=== PATIENT | female | born 1950 | race Two or more races ===

== ENCOUNTER 2017-10-20 12:45 | Emergency (ER) | payer OTHER, MEDICAID ==
[~2017-10-20] VITALS: Ht 154.9 cm; Wt 65.8 kg
[~2017-10-20 12:45] MED LIST: ALEN70TA55 PO; ASPI325T4 PO; CARV3.1240 PO; ESCI10TA53 PO; GABA800T97 PO; INSLANTI SC; LATA0.0015 LEFTEYE; LISI10TA6 PO; NOVOLOG SC; OMEP20TA44 PO; SIMV10TA84 PO; TAMS0.4C36 PO; [UNRECOGNIZED DRUG - CODE] PO
[2017-10-20 13:47] LABS: Basophils # (auto) 0.1 uL; Basophils % (auto) 1.4 % (0.0-2.0); Eosinophils # (auto) 0.2 uL; Eosinophils % (auto) 3.6 % (0.0-7.0); Hematocrit 40.2 % (36.0-46.0); Hemoglobin 13.2 g/dL (12.2-16.2); Lymphocytes # (auto) 1.5 uL; Lymphocytes % (auto) 29.3 % (10.0-50.0); Mean Corpuscular Hemoglobin 29.3 pg (28.0-32.0); Mean Corpuscular Hgb Conc. 32.8 g/dL (32.0-36.0); Mean Corpuscular Volume 89.5 fL (80.0-100.0); Monocytes # (auto) 0.4 uL; Monocytes % (auto) 8.4 % (0.0-12.0); Neutrophils # (auto) 2.9 uL; Neutrophils % (auto) 57.3 % (37.0-80.0); Nucleated Red Blood Cells % 0.2 %; Platelet Count (auto) 227 10^3/uL (140-450); Red Cell Distribution Width 14.7 % (11.8-14.3); White Blood Cell 5.1 10^3/uL (4.4-10.8)
[2017-10-20 14:00] LABS: INR 0.93 (0.9-1.15); Partial Thromboplastin Time 28.5 sec (23.78-33.04)
[2017-10-20 14:10] LABS: Alanine Aminotransferase 24 U/L (13-56); Albumin 3.4 g/dL (3.4-5.0); Alkaline Phosphatase 82 U/L (45-117); Anion Gap 12 (5-15); Aspartate Aminotransferase 19 U/L (15-37); BUN/Creatinine Ratio 17.8; Bilirubin, Total 0.3 mg/dL (0.2-1.0); Blood Urea Nitrogen 21 mg/dL (7-18); Calcium 8.5 mg/dL (8.5-10.1); Carbon Dioxide 24 mmol/L (21-32); Chloride 103 mmol/L (98-107); GFR African American 59 mL/min; GFR Non-African American 49 mL/min; Glucose 101 mg/dL (74-106); Potassium 3.9 mmol/L (3.5-5.1); Sodium 139 mmol/L (136-145)
[2017-10-20] MEDS ORDERED: FUROSEMIDE 40 MG/4 ML VIAL IV ONE (14:45)
[2017-10-20 15:52] VITALS: BP 146/66
== END 2017-10-20 15:54 | disposition home or self-care (01) ==
LOC: ER 12:45
DX: I50.9 Heart failure, unspecified (principal); E11.9 Type 2 diabetes mellitus without complications; I10 Essential (primary) hypertension; Z96.89 Presence of other specified functional implants; Z79.82 Long term (current) use of aspirin; Z79.4 Long term (current) use of insulin
CPT/HCPCS: 36415; 71045; 80053; 81002; 83880; 84484; 85025; 85610; 85730; 93005; 96374; 99285; J1940

== ENCOUNTER → 2019-06-06 | Emergency (ER) | payer OTHER, MEDICAID ==
[~2019-06-06] VITALS: Ht 162.6 cm; Wt 60.3 kg
[~2019-06-06] MED LIST changes: +ALEN1TAB32 PO; -ALEN70TA55 PO; -LATA0.0015 LEFTEYE; +LATA0.0019 LEFTEYE; +MORPHINE SULFATE 4 MG/ML SYR/VIAL IV ONE; +NITR100C44 PO; +ONDANSETRON HCL 4 MG/2 ML VIAL IV ONE; +ONDANSETRON ODT 4 MG TAB PO ONE; +OXYB5TAB61 PO
[2019-06-06 23:01] VITALS: BP 131/63
== END | disposition home or self-care (01) ==
LOC: EDUNIT# 19:34 → EDBD 19:35 → ER 19:36
DX: S83.91XA Sprain of unspecified site of right knee, initial encounter (principal); S80.01XA Contusion of right knee, initial encounter; E11.9 Type 2 diabetes mellitus without complications; E78.5 Hyperlipidemia, unspecified; I10 Essential (primary) hypertension; Z88.6 Allergy status to analgesic agent; W01.0XXA Fall on same level from slipping, tripping and stumbling without subsequent striking against object, initial encounter; Y93.89 Activity, other specified; Y92.89 Other specified places as the place of occurrence of the external cause; Y99.8 Other external cause status
CPT/HCPCS: 73562; 96374; 96375; 99285; J2270; J2405

== ENCOUNTER 2020-01-19 18:15 | Inpatient (IN) | payer OTHER, MEDICAID ==
[~2020-01-19] VITALS: Ht 165.1 cm; Wt 60.5 kg
[~2020-01-19 18:15] MED LIST changes: +LISI-648 PO; -LISI10TA6 PO; -MORPHINE SULFATE 4 MG/ML SYR/VIAL IV ONE; +NITR-87 PO; -NITR100C44 PO; -ONDANSETRON HCL 4 MG/2 ML VIAL IV ONE; -ONDANSETRON ODT 4 MG TAB PO ONE
[2020-01-19 19:21] LABS: Basophils # (auto) 0 10 ^3/uL (0-0.2); Basophils % (auto) 0.7 % (0.0-2.0); Eosinophils # (auto) 0.1 10 ^3/uL (0-0.8); Eosinophils % (auto) 1.6 % (0.0-7.0); Hematocrit 31.6 % (36.0-46.0); Hemoglobin 10.5 g/dL (12.2-16.2); Lymphocytes # (auto) 0.8 10 ^3/uL (0.4-5.4); Lymphocytes % (auto) 10.4 % (10.0-50.0); Mean Corpuscular Hgb Conc. 33.2 g/dL (32.0-36.0); Mean Corpuscular Volume 87.3 fL (80.0-100.0); Monocytes # (auto) 0.2 10 ^3/uL (0-1.3); Neutrophils # (auto) 6.3 10 ^3/uL (1.6-8.6); Neutrophils % (auto) 84.3 % (37.0-80.0); Platelet Count (auto) 323 10^3/uL (140-450); Red Blood Cells 3.61 10^6/uL (4.0-5.20); Red Cell Distribution Width 15.8 % (11.8-14.3); White Blood Cell 7.5 10^3/uL (4.4-10.8)
[2020-01-19 19:37] LABS: INR 0.99 (0.9-1.15); Partial Thromboplastin Time 26.8 sec (23.0-31.2)
[2020-01-19 19:39] LABS: Calcium 8.4 mg/dL (8.5-10.1); Magnesium 2.8 mg/dL (1.6-2.6); Potassium 3.7 mmol/L (3.5-5.1)
[2020-01-19 19:45] LABS: BUN/Creatinine Ratio 14.9; Bilirubin, Total 0.3 mg/dL (0.2-1.0); Total Protein 7.9 g/dL (6.4-8.2)
[2020-01-19 23:58] LABS: Urine Bacteria MANY /hpf (None Seen); Urine Blood 2+ /uL (Negative); Urine Specific Gravity 1.012 (1.001-1.035); Urine WBC 546 /hpf (0 - 5); Urine WBC Clumps PRESENT /hpf (None Seen)
[2020-01-20] VITALS (7 sets, daily range): BP systolic 110–162; BP diastolic 57–85
[2020-01-20 00:03] LABS: Alcohol, Urine < 3.0 mg/dL (0-10); Amphetamine Screen, Urine POSITIVE (NEGATIVE); Barbiturate Scree,Urine NEGATIVE (NEGATIVE); Benzodiazephine Screen, Urine NEGATIVE (NEGATIVE); Cannabinoid Screen, Urine NEGATIVE (NEGATIVE); Cocaine Screen, Urine NEGATIVE (NEGATIVE); Opiate Scree,Urine NEGATIVE (NEGATIVE); Phencyclidine Screen, Urine NEGATIVE (NEGATIVE)
[2020-01-20] MEDS ORDERED: cefTRIAXone 1GM/50ML D5W 50 ML IV ONE (00:15)
[2020-01-20] MEDS ORDERED: NITROGLYCERIN 0.4 MG SL TAB SL PRN (00:15)
[2020-01-20] MEDS ORDERED: SODIUM CHLORIDE 0.9% 1,000 ML IV SCH (00:15)
[2020-01-20] MEDS ORDERED: MORPHINE SULF INJ 2 MG/ML SYRINGE 1ML IV PRN (00:15)
--- NOTE | 2020-01-20 01:58 | NUR ---
pt arrival pt arrived via stretcher. pt was transferred to hospital bed. pt is on room air. pt denies pain at this time.
[2020-01-20] MEDS ORDERED: ONDANSETRON HCL 4 MG/2 ML VIAL IV PRN (02:00)
[2020-01-20] MEDS ORDERED: ONDANSETRON HCL 4 MG/2 ML VIAL IV SCH (02:00)
--- NOTE | 2020-01-20 06:50 | NUR ---
Dr Jackson, New orders received: 10mg Hydralazine IV Q6 PRN for SBP >160. Diet order consistent carb. Orders read back and verified. This RN will carry out orders.
[2020-01-20] MEDS ORDERED: hydrALAZINE HCL 20 MG/ML VL IV PRN (07:00)
--- NOTE | 2020-01-20 07:09 | NUR ---
closing note pt resting in semi fowlers with HOB at 30 degrees. no c/o pain at this time. respirations even and non labored on room air. kaba is patent, no kinks, below bladder and draining to gravity. endorsed care to day shift RN Thad.
--- NOTE | 2020-01-20 07:55 | NUR ---
PAGED AND SPOKE TO Alex SHAFER, INFORMED OF PATIENTS LEFT SIDED WEAKNESS AND FACIAL DROOPING. INFORMED OF RECENT HEAD CT THAT WAS JUST PERFORMED YESTERDAY WITH NO ACUTE INTRACRANIAL FINDINGS PER CT REPORT. RECEIVED NEW ORDERS. TORB. WILL FOLLOW THROUGH.
--- NOTE | 2020-01-20 08:10 | NUR ---
JOHN VANG FOR NEUROLOGY CONSULT. AWAITING CALL BACK.
[2020-01-20] MEDS ORDERED: ASPirin 81 mg TAB PO ONE (08:15)
[2020-01-20] MEDS ORDERED: ATORVASTATIN 20 MG TAB PO ONE (08:15)
--- NOTE | 2020-01-20 09:08 | NUR ---
CALLED AND LEFT MESSAGE WITH MINI FOR UPDATED MEDICATION LIST.
[2020-01-20 09:45] LABS: Basophils # (auto) 0 10 ^3/uL (0-0.2); Basophils % (auto) 0.5 % (0.0-2.0); Eosinophils # (auto) 0.1 10 ^3/uL (0-0.8); Eosinophils % (auto) 1.9 % (0.0-7.0); Hematocrit 30.9 % (36.0-46.0); Hemoglobin 10.3 g/dL (12.2-16.2); Lymphocytes # (auto) 0.8 10 ^3/uL (0.4-5.4); Mean Corpuscular Hemoglobin 29.2 pg (28.0-32.0); Mean Corpuscular Hgb Conc. 33.4 g/dL (32.0-36.0); Mean Corpuscular Volume 87.4 fL (80.0-100.0); Monocytes # (auto) 0.3 10 ^3/uL (0-1.3); Monocytes % (auto) 3.4 % (0.0-12.0); Neutrophils # (auto) 6.5 10 ^3/uL (1.6-8.6); Neutrophils % (auto) 84.2 % (37.0-80.0); Platelet Count (auto) 316 10^3/uL (140-450); Red Blood Cells 3.53 10^6/uL (4.0-5.20); White Blood Cell 7.7 10^3/uL (4.4-10.8)
[2020-01-20 10:02] LABS: Albumin 2.8 g/dL (3.4-5.0); Calcium 8.5 mg/dL (8.5-10.1); Cholesterol 181 mg/dL (< 200); Potassium 3.9 mmol/L (3.5-5.1)
[2020-01-20 10:04] LABS: HDL Cholesterol 56 mg/dL (40-59); LDL Cholesterol 107 mg/dL (< 100); Triglycerides 159 mg/dL (< 150)
[2020-01-20 10:05] LABS: BUN/Creatinine Ratio 15.4; Bilirubin, Total 0.3 mg/dL (0.2-1.0); Total Protein 7.7 g/dL (6.4-8.2)
[2020-01-20] MEDS: SODIUM BICARBONATE 50ML VIAL 50 ML in SOD CHL 0.45% 1,000 ML IV SCH ×2 (11:36→23:26)
--- NOTE | 2020-01-20 11:37 | NUR ---
CALLED AND SPOKE TO Cristopher GARCIA REGARDING PATIENTS RENAL US. INFORMED OF IMPRESSIONS ON REPORT. INFORMED OF PATIENTS URINE OUTPUT OF 100ML/HR. RECEIVED NEW ORDER FOR UROLOGY CONSULT.
--- NOTE | 2020-01-20 11:52 | NUR ---
Cristopher CONN: Cristopher RENTERIA AT BEDSIDE. INFORMED OF PATIENTS STATUS. INFORMED OF PATIENTS RUN OF V-TACH ON 01/19/20. INFORMED OF PATIENTS RENAL ULTRASOUND RESULTS AND OF PENDING UROLOGY CONSULT. INFORMED OF IMPRESSIONS FROM CXR. RECEIVED ORDERS FOR PULMONOLOGY AND ONCOLOGY CONSULTS. INFORMED OF PATIENTS FACIAL DROOPING AND LEFT SIDED WEAKNESS AND OF RESULTS FROM CAROTID ULTRASOUND. RECIEVED NEW ORDERS FOR BRAIN MRI/ MRA WITHOUT CONTRAST. TORB. WILL FOLLOW THROUGH.
[2020-01-20 11:56] LABS: Protein, Urine 106.7 mg/dL (0.0-11.9)
--- NOTE | 2020-01-20 12:37 | NUR ---
JOHN RENTERIA REGARDING BRAIN MRI NOT BEING ABLE TO BE DONE PATIENT HAS AICD.
--- NOTE | 2020-01-20 13:00 | NUR ---
SPOKE TO La SAEED REGARDING UROLOGY CONSULT. PER DARLIN OK TO IRRIGATE LOPEZ CATHETER NEED. WILL FOLLOW UP TOMORROW.
[2020-01-20] MEDS: HEPARIN SODIUM (PORCINE) 5000 UNITS/ML 1ML VIAL SC SCH ×2 (13:39→22:28)
--- NOTE | 2020-01-20 16:48 | NUR ---
ATTEMPTING TO CALL REPORT TO THOMAS. AWAITING CALL BACK.
--- NOTE | 2020-01-20 17:05 | NUR ---
ATTEMPTED TO CALL REPORT TO LIA GUZMAN AGAIN. PER CHARGE SEND PATIENT AND HAVE THOMAS RN CALL FOR REPORT.
--- NOTE | 2020-01-20 17:20 | NUR ---
PATIENT TRANSFERRED TO ROOM 212B VIA BED. NO S/SOF DISTRESS NOTED AT THIS TIME. CALLED TELE OFFICE TO INFORM OF PATIENT TRANSFER.
--- NOTE | 2020-01-20 17:25 | NUR ---
Patient transferred to unit in stable condition.
--- NOTE | 2020-01-20 18:10 | NUR ---
Patient resting quietly in bed with no distress noted; denies any pain at this time. Patient stable since transfer to unit.
--- NOTE | 2020-01-20 20:02 | NUR ---
Dr. Bloom is listed for neurology consult? will f/u for clarification, do they want nephrology consult or neurology consult?
[2020-01-20] MEDS ORDERED: DEXTROSE (50%) 50ML SYRG IV PRN (22:15)
[2020-01-20] MEDS ORDERED: LORazepam 2MG/ML-1ML VIAL IV PRN (22:15)
[2020-01-20] MEDS: cefTRIAXone 1GM/50ML D5W 50 ML IV SCH (22:27)
[2020-01-20] MEDS: ASPirin-EC 325mg tab PO SCH (22:37)
[2020-01-20] MEDS: ATORVASTATIN 20 MG TAB PO SCH (22:37)
[2020-01-21 05:00] VITALS: BP 140/84
[2020-01-21] MEDS ORDERED: GABAPENTIN 400 MG CAP PO SCH (06:00)
[2020-01-21] MEDS: HEPARIN SODIUM (PORCINE) 5000 UNITS/ML 1ML VIAL SC SCH ×2 (06:20→21:47)
[2020-01-21] MEDS: ACCU-CHEK COMFORT CURVE STRIP VI SCH ×4 (06:37→22:24)
[2020-01-21] MEDS: InsuLIN REG 1unit/0.01ml Soln (100units/ml) SC SCH ×4 (06:37→22:26)
[2020-01-21 07:09] LABS: Basophils # (auto) 0.1 10 ^3/uL (0-0.2); Eosinophils # (auto) 0.2 10 ^3/uL (0-0.8); Eosinophils % (auto) 4.3 % (0.0-7.0); Hematocrit 27.7 % (36.0-46.0); Hemoglobin 9.4 g/dL (12.2-16.2); Lymphocytes # (auto) 1.6 10 ^3/uL (0.4-5.4); Mean Corpuscular Hemoglobin 29.5 pg (28.0-32.0); Mean Corpuscular Volume 86.8 fL (80.0-100.0); Monocytes # (auto) 0.4 10 ^3/uL (0-1.3); Monocytes % (auto) 6.9 % (0.0-12.0); Neutrophils # (auto) 3.5 10 ^3/uL (1.6-8.6); Neutrophils % (auto) 60.8 % (37.0-80.0); Nucleated Red Blood Cells % 0.2 %; Platelet Count (auto) 278 10^3/uL (140-450); Red Blood Cells 3.19 10^6/uL (4.0-5.20); Red Cell Distribution Width 15.5 % (11.8-14.3); White Blood Cell 5.7 10^3/uL (4.4-10.8)
[2020-01-21] MEDS: SODIUM BICARBONATE 50ML VIAL 50 ML in SOD CHL 0.45% 1,000 ML IV SCH ×2 (07:15→15:36)
[2020-01-21 07:24] LABS: Albumin 2.5 g/dL (3.4-5.0); Potassium 3.6 mmol/L (3.5-5.1)
--- NOTE | 2020-01-21 07:25 | NUR ---
Patient asleep with no distress noted at this time. Patient stable.
[2020-01-21 07:35] LABS: Bilirubin, Total 0.2 mg/dL (0.2-1.0); Total Protein 6.7 g/dL (6.4-8.2)
[2020-01-21 08:00] VITALS: BP 140/80
[2020-01-21 09:00] VITALS: BP 140/80
[2020-01-21] MEDS ORDERED: ASPirin-EC 325mg tab PO SCH (10:00)
[2020-01-21] MEDS: ASPirin-EC 325mg tab PO SCH (10:27)
[2020-01-21] MEDS: OXYBUTYNIN CHL 5 MG TAB PO SCH ×2 (10:27→21:46)
[2020-01-21] MEDS: PANTOPRAZOLE 40 MG TAB PO SCH (10:28)
[2020-01-21] MEDS: CITALOPRAM HYDROBR 20 MG TAB PO SCH (10:28)
--- NOTE | 2020-01-21 10:28 | NUR ---
Scheduled medications given per order. Patient resting comfortably in bed; denies any pain at this time. Patient stable with lion Gonzalez at bedside.
--- NOTE | 2020-01-21 12:40 | NUR ---
Checked blood sugar: 105 mg/dl - no coverage required. Patient eating lunch at this time. Denies any pain. Patient stable.
[2020-01-21 13:00] VITALS: BP 154/79
--- NOTE | 2020-01-21 14:41 | NUR ---
Pt is an alert and oriented female that is able to make her needs known and engage in conversation. Pt states she resides in her own home and has a new caregiver, Ambar, that she says will be helping her for 8 hours a day. Inquired if pt could ambulate, go to the bathroom on her own, etc. when the caregiver is not there. Pt stated she did not know. Requested the phone number of caregiver and pt stated she did not have it. Discussed SNF vs. HH for discharge planning and pt stated she would consider it. Pt stated I could contact facilities and followup with her. Contacted [facility], [facility], [facility], and [facility] and pt accepted at [facility]. Pt will need a PT evaluation and authorization from [facility]. Will refer case to covering and CM for followup. Addendum: 01/21/20 at 1515 by JESSY LUGO Amended: Links added.
[2020-01-21] MEDS ORDERED: GABAPENTIN 300 MG CAP PO SCH (14:45)
--- NOTE | 2020-01-21 14:55 | NUR ---
Patient resting comfortably in bed with eyes closed. No distress noted at this time. Patient stable.
--- NOTE | 2020-01-21 15:40 | NUR ---
Started new IVF bag. Patient resting quietly in bed; stable.
--- NOTE | 2020-01-21 15:58 | NUR ---
1550 01/21/20 - Contacted physical therapy regarding consult for PT edwardoal, spoke with Ezio who confirmed receiving consult. Pending completion of evaluation.
[2020-01-21 17:00] VITALS: BP 140/97
--- NOTE | 2020-01-21 17:40 | NUR ---
Checked blood sugar: 112 mg/dl - no coverage required. Patient stable at this time.
--- NOTE | 2020-01-21 19:30 | NUR ---
Opening Shift Note Assumed care of patient, sleeping soundly with no s/sx of pain. RN will continue to monitor for changes Q1hr and PRN. Pt's call light is next to her R side at elbow. Bed in low position with HOB in semi-Herrera's.
[2020-01-21] MEDS: cefTRIAXone 1GM/50ML D5W 50 ML IV SCH (21:46)
[2020-01-21] MEDS: ATORVASTATIN 20 MG TAB PO SCH (21:47)
[2020-01-21] MEDS: GABAPENTIN 300 MG CAP PO SCH (21:47)
[2020-01-21 22:00] VITALS: BP 152/79
[2020-01-21] MEDS ORDERED: PATIENTS OWN MEDICATION (Simvastatin 10 MG) PO SCH (22:00)
--- NOTE | 2020-01-21 22:00 | NUR ---
Pt asking for snack; turkey/cheese sandwich provided as well as one cranberry juice. RN explained to pt that she will not be able to have drink or food after MN as prep for procedure tomorrow. Pt VU and agreement with plan. Pt grateful for food provided.
--- NOTE | 2020-01-21 23:36 | NUR ---
Dr. Aponte here at nurses' station speaking with RN about pt's imaging of lungs/nodules and pt's current status.
[2020-01-22] MEDS ORDERED: SODIUM BICARBONATE 8.4 % INJ 50ML VIAL IV ONE (03:52)
[2020-01-22] MEDS: SODIUM BICARBONATE 50ML VIAL 50 ML in SOD CHL 0.45% 1,000 ML IV SCH ×2 (04:11→16:37)
--- NOTE | 2020-01-22 05:48 | NUR ---
Pt requested assist to go to [facility] for bm; already passing liquid brown bm. Complete linen change and partial bed bath with le-care done by REPORTING CONSULTANT with RN assisting. Pt luis activity well.
[2020-01-22] MEDS: HEPARIN SODIUM (PORCINE) 5000 UNITS/ML 1ML VIAL SC SCH ×2 (05:54→22:00)
[2020-01-22 06:00] VITALS: BP 153/79
[2020-01-22] MEDS: InsuLIN REG 1unit/0.01ml Soln (100units/ml) SC SCH ×4 (06:02→22:00)
[2020-01-22] MEDS: ACCU-CHEK COMFORT CURVE STRIP VI SCH ×4 (06:02→22:22)
[2020-01-22 06:13] LABS: Albumin 2.2 g/dL (3.4-5.0); Calcium 7.7 mg/dL (8.5-10.1); Potassium 3.6 mmol/L (3.5-5.1)
[2020-01-22 06:16] LABS: BUN/Creatinine Ratio 15.8; Bilirubin, Total 0.2 mg/dL (0.2-1.0); Total Protein 6.6 g/dL (6.4-8.2)
--- NOTE | 2020-01-22 07:15 | NUR ---
Patient asleep at this time with no distress noted. Patient stable.
[2020-01-22 08:30] VITALS: BP 137/64
[2020-01-22 09:00] VITALS: BP 137/64
--- NOTE | 2020-01-22 09:13 | NUR ---
Patient resting comfortably in bed with eyes closed; Dr. Calderon at bedside. Patient stable at this time.
--- NOTE | 2020-01-22 09:45 | NUR ---
Patient resting comfortably in bed with Dr. Delgado at bedside. Patient stable.
[2020-01-22] MEDS ORDERED: ERGOCALCIFEROL 50,000 UNIT(1.25MG) CAP PO SCH (10:00)
[2020-01-22] MEDS: OXYBUTYNIN CHL 5 MG TAB PO SCH ×2 (10:00→22:22)
[2020-01-22] MEDS: CITALOPRAM HYDROBR 20 MG TAB PO SCH (10:00)
[2020-01-22] MEDS: PANTOPRAZOLE 40 MG TAB PO SCH (10:00)
[2020-01-22] MEDS: ASPirin-EC 325mg tab PO SCH (10:00)
--- NOTE | 2020-01-22 10:14 | NUR ---
Patient stable at this time; resting comfortably in bed.
--- NOTE | 2020-01-22 11:29 | NUR ---
Checked blood sugar: 111 mg/dl - no coverage required. Patient resting quietly in bed at this time. Patient stable.
[2020-01-22] MEDS ORDERED: LIDOCAINE 2%HCL (LOCAL ANESTH.) INJ 20ML MDV ONE (12:02)
--- NOTE | 2020-01-22 12:20 | NUR ---
Patient taken in stable condition to Drain Layer for procedure.
--- NOTE | 2020-01-22 12:24 | NUR ---
Nutrition Assessment Note: Please see attached link for complete assessment Est energy needs BW 58 [id number] kcal (25-30 kcal BW), Est protein needs: 46-58 g (0.8-1.0 g/kg BW r/t elev RFT severe hypoalb). Will reassess prn Addendum: 01/22/20 at [address] Amended: Links added.
[2020-01-22 13:00] VITALS: BP 144/81
[2020-01-22] MEDS ORDERED: fentaNYL CITRATE 100 MCG/2 ML VL ONE (13:23)
[2020-01-22] MEDS ORDERED: MIDAZOLAM HCL 1MG/1ML-2 ML VIAL ONE (13:23)
--- NOTE | 2020-01-22 14:37 | NUR ---
Patient brought to recovery via bed, report received from LIA Blanton. Patient is AO x 4, NAD noted and patient denies pain. Left nephrostomy tube in place and is currently draining pink-tinged fluid, dressing to left flank is CDI. Right nephrostomy tube in place and is currently draining serosanguineous fluid, dressing to right flank is CDI. Patient educated on post-procedure instructions, verbalized understanding.
--- NOTE | 2020-01-22 14:52 | NUR ---
Patient is resting in bed with eyes closed, no s/s of distress. Breaths are even and unlabored. Bilateral nephrostomy tube sites remain unchanged.
--- NOTE | 2020-01-22 15:13 | NUR ---
Report given to primary RN, Gege.
--- NOTE | 2020-01-22 15:20 | NUR ---
Patient taken to telemetry unit via bed by this RN and LIA Salguero. traffic monitor specialist in place. NAD noted upon departure. Primary RNGege present at bedside to witness bilateral nephrotomy sites, unchanged form previous state. VS WNL of baseline. Care endorsed to LIA De Guzman.
--- NOTE | 2020-01-22 15:25 | NUR ---
Patient returned to unit in stable condition with bilateral nephrostomy tubes with bright, red drainage.
--- NOTE | 2020-01-22 15:30 | NUR ---
Patient taken to [facility] for bone scan.
--- NOTE | 2020-01-22 16:26 | NUR ---
D/C planning Physical therapy evaluation is still pending. Will follow up in the morning.
--- NOTE | 2020-01-22 16:39 | NUR ---
Patient medicated for 10/10 pain at nephrostomy sites and chest pain. Checked blood sugar: 147 mg/dl - will cover per sliding scale. Patient stable at this time.
[2020-01-22 16:51] VITALS: BP 145/69
--- NOTE | 2020-01-22 18:50 | NUR ---
Patient resting quietly in bed with eyes closed. Emptied 150mls from right nephrostomy tube, 325mls from left nephrostomy tube, and 225mls from Kerr bag. Patient stable throughout shift.
--- NOTE | 2020-01-22 19:58 | NUR ---
Called natural resources extension educator for Dr. Gabby Ruby; spoke with Dr. Jackson asking for pain med for pt. Order received for Morphine 2mg/ml q4h prn mod to severe pain. Order entered into EMR.
[2020-01-22 22:00] VITALS: BP 129/62
[2020-01-22] MEDS: cefTRIAXone 1GM/50ML D5W 50 ML IV SCH (22:22)
[2020-01-22] MEDS: GABAPENTIN 300 MG CAP PO SCH (22:22)
[2020-01-22] MEDS: ATORVASTATIN 20 MG TAB PO SCH (22:22)
[2020-01-22] MEDS: MORPHINE SULF INJ 2 MG/ML SYRINGE 1ML IV PRN (22:42)
[2020-01-23] MEDS: SODIUM BICARBONATE 50ML VIAL 50 ML in SOD CHL 0.45% 1,000 ML IV SCH (00:43)
[2020-01-23 04:55] VITALS: BP 102/56
[2020-01-23] MEDS: ACCU-CHEK COMFORT CURVE STRIP VI SCH ×3 (06:00→17:00)
[2020-01-23] MEDS: InsuLIN REG 1unit/0.01ml Soln (100units/ml) SC SCH ×4 (06:00→22:00)
[2020-01-23] MEDS: HEPARIN SODIUM (PORCINE) 5000 UNITS/ML 1ML VIAL SC SCH ×3 (06:13→22:00)
--- NOTE | 2020-01-23 06:52 | NUR ---
Total urine output for this 12 hr. shift was: L nephrostomy =275ml. R nephrostomy = 200ml. F/C = 50ml.
--- NOTE | 2020-01-23 06:54 | NUR ---
Dressings to sacrum and nephrostomy sites are CD&I.
[2020-01-23 06:58] LABS: Albumin 2.4 g/dL (3.4-5.0); Calcium 8.2 mg/dL (8.5-10.1)
[2020-01-23 07:02] LABS: BUN/Creatinine Ratio 13.6; Bilirubin, Total 0.3 mg/dL (0.2-1.0); Total Protein 6.7 g/dL (6.4-8.2)
--- NOTE | 2020-01-23 07:30 | NUR ---
Medication withheld Heparin withheld due to scheduled biopsy for the morning. Doctor answering service called. Covering physician suggested to wait to speak to Dr. Mercado in the morning. Endorsed to night warehouse manager.
--- NOTE | 2020-01-23 07:50 | NUR ---
Opening Shift Note Assumed care of patient, awake and alert to name. A/O X 3. Patient cannot remember where she lives. No S/S of distress/SOB or pain. Patient presents with right sided weakness and shaking. Left side is also weak but no noticeable uncontrolled movements observed. Kerr in place with minimal red urine draining. Right and left nephrostomy tubes in place, dressings dry and clean. Right side 110ml, left side 75 ml. Instructed on POC and to call for assist PRN. Patient verbalized understanding. Bed is in lowest position and the call light is within reach of the patient. Will continue to monitor for changes Q1hr and PRN.
[2020-01-23 08:25] VITALS: BP 131/83
[2020-01-23 09:00] VITALS: BP 131/83
--- NOTE | 2020-01-23 09:30 | NUR ---
Dr. Delgado at bedside Dr. Delgado at bedside rounding on patient.
[2020-01-23] MEDS: OXYBUTYNIN CHL 5 MG TAB PO SCH (09:53)
[2020-01-23] MEDS: PANTOPRAZOLE 40 MG TAB PO SCH (09:53)
[2020-01-23] MEDS: CITALOPRAM HYDROBR 20 MG TAB PO SCH (09:53)
[2020-01-23] MEDS: ASPirin-EC 325mg tab PO SCH (09:56)
--- NOTE | 2020-01-23 10:38 | NUR ---
Radiology instructions Radiology called to inform about a scheduled lung BX for tomorrow. NPO after midnight.
--- NOTE | 2020-01-23 11:32 | NUR ---
Telemetry call Telemetry office called to inform that the patient is running the mid to high 40's. Patient is sleeping but was easily woken upon assessment. ECG leads were checked, replaced and repositioned. Will continue to monitor.
[2020-01-23 12:57] VITALS: BP 98/48
[2020-01-23] MEDS: SODIUM CHLORIDE 0.9% 1,000 ML IV SCH (14:30)
[2020-01-23 16:55] VITALS: BP 107/57
--- NOTE | 2020-01-23 19:30 | NUR ---
OPENING SHIFT NOTE Pt is resting in bed with eyes open and resp rate is even and unlabored. No s/s of any distress noted. POC discussed with pt and pt verbalizes understanding. Bed is low, wheels are locked, and call light is with in reach. Bed alarm is set for pt safety.
[2020-01-23 22:00] VITALS: BP 108/62
[2020-01-24] VITALS (10 sets, daily range): BP systolic 117–137; BP diastolic 48–67
[2020-01-24] MEDS: cefTRIAXone 1GM/50ML D5W 50 ML IV SCH ×2 (00:10→21:36)
[2020-01-24] MEDS: GABAPENTIN 300 MG CAP PO SCH ×2 (00:11→21:37)
[2020-01-24] MEDS: ATORVASTATIN 20 MG TAB PO SCH ×2 (00:11→21:37)
[2020-01-24] MEDS: OXYBUTYNIN CHL 5 MG TAB PO SCH ×3 (00:11→21:37)
[2020-01-24] MEDS: ACCU-CHEK COMFORT CURVE STRIP VI SCH ×5 (00:11→21:38)
--- NOTE | 2020-01-24 05:00 | NUR ---
NEPHRO TUBE DRAINAGE FOR FACILITY MANAGER RIGHT SIDE= 400MLS SHEPPARD RED DRAINAGE WITH LARGE CLOTS. LEFT SIDE= 150MLS PINK DRAINAGE.
[2020-01-24] MEDS: SODIUM CHLORIDE 0.9% 1,000 ML IV SCH ×3 (05:31→21:36)
[2020-01-24] MEDS: HEPARIN SODIUM (PORCINE) 5000 UNITS/ML 1ML VIAL SC SCH ×3 (05:35→21:38)
[2020-01-24] MEDS: InsuLIN REG 1unit/0.01ml Soln (100units/ml) SC SCH ×4 (06:33→21:34)
[2020-01-24 06:54] LABS: Basophils # (auto) 0 10 ^3/uL (0-0.2); Eosinophils # (auto) 0.2 10 ^3/uL (0-0.8); Hemoglobin 8.3 g/dL (12.2-16.2); Lymphocytes # (auto) 0.8 10 ^3/uL (0.4-5.4); Platelet Count (auto) 213 10^3/uL (140-450)
[2020-01-24 06:57] LABS: Basophils % (auto) 0.5 % (0.0-2.0); Eosinophils % (auto) 3.3 % (0.0-7.0); Hematocrit 24.5 % (36.0-46.0); Lymphocytes % (auto) 11.3 % (10.0-50.0); Mean Corpuscular Hemoglobin 29.8 pg (28.0-32.0); Mean Corpuscular Hgb Conc. 33.9 g/dL (32.0-36.0); Mean Corpuscular Volume 87.8 fL (80.0-100.0); Monocytes # (auto) 0.5 10 ^3/uL (0-1.3); Monocytes % (auto) 6.8 % (0.0-12.0); Neutrophils # (auto) 5.3 10 ^3/uL (1.6-8.6); Neutrophils % (auto) 78.1 % (37.0-80.0); Red Blood Cells 2.79 10^6/uL (4.0-5.20); Red Cell Distribution Width 15.6 % (11.8-14.3); White Blood Cell 6.8 10^3/uL (4.4-10.8)
[2020-01-24 07:08] LABS: Albumin 2.1 g/dL (3.4-5.0); Calcium 7.5 mg/dL (8.5-10.1); Magnesium 2.1 mg/dL (1.6-2.6); Potassium 3.8 mmol/L (3.5-5.1)
[2020-01-24 07:11] LABS: BUN/Creatinine Ratio 14.5; Bilirubin, Total 0.2 mg/dL (0.2-1.0)
--- NOTE | 2020-01-24 07:15 | NUR ---
Opening Shift Note Assumed care of patient. Sleeping comfortably when entering the room. Awaken for am assessment. No S/S of distress/SOB or pain. Nephrostomy tubes and kaba in tact and draining well. Instructed on POC including scheduled lung biopsy. Patient verbalized understanding. Encouraged to call PRN. Bed is in lowest position and the call light is within reach of the patient. Will continue to monitor for changes Q1hr and PRN.
--- NOTE | 2020-01-24 09:30 | NUR ---
Dr. Delgado at bedside Dr. Delgado at bedside assessing the patient. Doctor updated on the heparin order and suggested to not give today but resume tomorrow. Made aware of it withheld yesterday for today's procedure.
[2020-01-24] MEDS ORDERED: MIDAZOLAM HCL 1MG/1ML-2 ML VIAL IV ONE (10:00)
[2020-01-24] MEDS ORDERED: fentaNYL CITRATE 100 MCG/2 ML VL IV ONE (10:00)
[2020-01-24] MEDS: ASPirin-EC 325mg tab PO SCH (10:00)
[2020-01-24] MEDS: PANTOPRAZOLE 40 MG TAB PO SCH (10:10)
[2020-01-24] MEDS: CITALOPRAM HYDROBR 20 MG TAB PO SCH (10:10)
[2020-01-24 10:55] LABS: INR 0.99 (0.9-1.15); Partial Thromboplastin Time 29.9 sec (23.0-31.2)
--- NOTE | 2020-01-24 14:50 | NUR ---
IV removal IV DC'd with sterile technique, catheter fully intact. Pressure dressing applied to site. Patient tolerated procedure well. IV access obtained, via clean sterile technique by inserting 20 gauge catheter in the right forearm after 1 attempt. IV secured properly. No trauma to site. Patient tolerated well.
--- NOTE | 2020-01-24 14:59 | NUR ---
Patient to radiology Patient transferred off the unit by radiology.
--- NOTE | 2020-01-24 15:20 | NUR ---
D/C Planning There is no MD order for SNF. [facility] is requesting order from MD with a new packet before authorizing SNF.
[2020-01-24] MEDS ORDERED: LIDOCAINE 2%HCL (LOCAL ANESTH.) INJ 20ML MDV ONE (15:32)
--- NOTE | 2020-01-24 16:30 | NUR ---
Patient returned to room Patient returned to room and resting comfortably. No S/S of pain at this time.
--- NOTE | 2020-01-24 16:30 | NUR ---
LUNG BIOPSY PATIENT HAD CT GUIDED RIGHT LUNG BIOPSY IN RADIOLOGY DEPT UNDER LOCAL ANESTHESIA. SEE FLOW SHEET FOR VS. PATIENT TOLERATED PROCEDURE WELL. BANDAID APPLIED TO RUQ ABD AT TERMINATION OF PROCEDURE WITHOUT BLEEDING/HEMATOMA NOTED AT SITE. CXR ORDERED PER PROTOCOL. CONDITION APPEARS STABLE FOR RETURN TO PATIENT ROOM. 400ML MEDIUM RED LIQUID EMPTIED OUT OF LEFT NEPHROSTOMY TUBE. REPORT GIVEN TO SANTOSH FITZGERALD.
--- NOTE | 2020-01-24 16:45 | NUR ---
Medication withheld [address] Delgado made aware. 1600 sugars checked 98. No coverage needed.
--- NOTE | 2020-01-24 21:00 | NUR ---
Pt noted to be more alert and active this evening. Pt is able to move around in the bed and turn herself now. Pt is also stating that she has increased appetite and is noted to be able to feed herself. Pt encouraged to keep progressing with her ADL's and stand by assistance prn. Bed is low, wheels are locked, and call light is with in reach.
--- NOTE | 2020-01-25 01:00 | NUR ---
Pt called for assistance stating that she feels wet. Upon assessment pt is noted to have a disconnected nephro tube and tube reconnected at this time. All linens and gown also changed at this time. Checked right nephro tube and is noted to be connected and draining clear light pink urine w/ no clots. Kerr cath is also draining clear light pink urine. Will continue to monitor.
[2020-01-25 05:00] VITALS: BP 150/69
--- NOTE | 2020-01-25 05:00 | NUR ---
NEPHROSTOMY TUBE DRAINAGE FOR TAX ANALYST RIGHT= 400ML CLEAR LIGHT PINK LEFT= 200ML CLEAR LIGHT PINK
[2020-01-25 06:10] LABS: Albumin 2.1 g/dL (3.4-5.0); Calcium 7.6 mg/dL (8.5-10.1); Potassium 3.9 mmol/L (3.5-5.1)
[2020-01-25 06:12] LABS: BUN/Creatinine Ratio 14.1
[2020-01-25 06:14] LABS: Bilirubin, Total 0.2 mg/dL (0.2-1.0); Total Protein 6.3 g/dL (6.4-8.2)
[2020-01-25] MEDS: InsuLIN REG 1unit/0.01ml Soln (100units/ml) SC SCH ×4 (06:17→22:00)
[2020-01-25] MEDS: SODIUM CHLORIDE 0.9% 1,000 ML IV SCH (06:18)
[2020-01-25] MEDS: ACCU-CHEK COMFORT CURVE STRIP VI SCH ×4 (06:19→23:50)
[2020-01-25] MEDS: HEPARIN SODIUM (PORCINE) 5000 UNITS/ML 1ML VIAL SC SCH ×3 (06:20→23:50)
[2020-01-25 09:00] VITALS: BP 152/73
[2020-01-25] MEDS: OXYBUTYNIN CHL 5 MG TAB PO SCH ×2 (10:34→23:48)
[2020-01-25] MEDS: CITALOPRAM HYDROBR 20 MG TAB PO SCH (10:34)
[2020-01-25] MEDS: PANTOPRAZOLE 40 MG TAB PO SCH (10:34)
[2020-01-25] MEDS: ASPirin-EC 81 mg tab PO SCH (10:35)
[2020-01-25] MEDS: MORPHINE SULF INJ 2 MG/ML SYRINGE 1ML IV PRN (10:36)
--- NOTE | 2020-01-25 11:41 | NUR ---
Nutrition Followup Note Wt 61.4kg Pt was alert and oriented at time of rounds. Pt was about to work with PT. Per pt appetite is good and denies any GI issues or problems with the foods. pt appetite is good aeb pt with 82% avg po intake per RN note. Est energy needs BW 58 [id number] kcal (25-30 kcal BW), Est protein needs: 46-58 g (0.8-1.0 g/kg BW r/t elev RFT severe hypoalb). Will reassess prn Labs: Alb 2.1L, BUN 40H, Creat 2.83H, Ca 7.6L BM: pt with 1 BM 01/22 per Rn note Skin: Bs 14 mod risk, full details in manager long term care note PES: Altered nutrition related lab values rt current chronic medical condition aeb elev RFT severe hypoalb hypocalcemia Comments: 1) consider renal specific 50 gm protein 2gm na along with current diet if RFT continue to be elev 2) refer to CDE on DC 3) consider prostat 1 packet bid as RFT improve 4) continue current plan of care Expected Outcomes/Goals: pt will have improved labs F/u mod 3-5 days
[2020-01-25 13:00] VITALS: BP 145/72
--- NOTE | 2020-01-25 15:23 | NUR ---
Spoke to Dr. Delgado Informed Dr. Delgado regarding hematuria and pink tinged urine in kaba and nephrostomy tubes, he checked the output bedside. Orders to continue with heparin SC and discontinue IV fluid, orders received, read back and verified. Will continue to monitor.
[2020-01-25 17:19] VITALS: BP 119/61
--- NOTE | 2020-01-25 17:35 | NUR ---
Output of Nephrostomy Tubes Left tube - 500 ml, R tube - 300ml
[2020-01-25 22:37] VITALS: BP 141/78
[2020-01-25] MEDS: cefTRIAXone 1GM/50ML D5W 50 ML IV SCH (23:47)
[2020-01-25] MEDS: GABAPENTIN 300 MG CAP PO SCH (23:48)
[2020-01-25] MEDS: ATORVASTATIN 20 MG TAB PO SCH (23:48)
--- NOTE | 2020-01-26 05:00 | NUR ---
NEPHROSTOMY TUBE DRAINAGE FOR FINANCIAL SALES MANAGER RIGHT= 900 CLEAR PINK LEFT= 400 CLEAR PINK
[2020-01-26 05:27] VITALS: BP 119/57
[2020-01-26] MEDS: InsuLIN REG 1unit/0.01ml Soln (100units/ml) SC SCH ×4 (06:32→22:00)
[2020-01-26 06:33] LABS: Albumin 2.1 g/dL (3.4-5.0); BUN/Creatinine Ratio 15.4; Bilirubin, Total 0.2 mg/dL (0.2-1.0); Calcium 7.7 mg/dL (8.5-10.1); Total Protein 5.8 g/dL (6.4-8.2)
[2020-01-26] MEDS: ACCU-CHEK COMFORT CURVE STRIP VI SCH ×4 (06:33→22:00)
[2020-01-26] MEDS: HEPARIN SODIUM (PORCINE) 5000 UNITS/ML 1ML VIAL SC SCH ×3 (06:34→22:26)
[2020-01-26 06:55] LABS: Potassium 4.5 mmol/L (3.5-5.1)
--- NOTE | 2020-01-26 08:05 | NUR ---
Dr. Delgado at bedside Asked this RN to page Urology to get clarification on home care, patient to keep kaab? and nepho tubes? upon discharge. director professional services needed for patient home care management. Will follow up once urology has made contact regarding management of nephro care.
--- NOTE | 2020-01-26 08:20 | NUR ---
Paged clinical consultant urology regarding questions about discharge needs.
[2020-01-26 08:42] VITALS: BP 120/66
[2020-01-26] MEDS: CITALOPRAM HYDROBR 20 MG TAB PO SCH (09:11)
[2020-01-26] MEDS: ASPirin-EC 81 mg tab PO SCH (09:11)
[2020-01-26] MEDS: PANTOPRAZOLE 40 MG TAB PO SCH (09:11)
[2020-01-26] MEDS: OXYBUTYNIN CHL 5 MG TAB PO SCH ×2 (09:11→22:27)
--- NOTE | 2020-01-26 09:18 | NUR ---
Patient preference to go home Patient states "I have a caregiver, Yvette, she can help me." She does not want to go to a rehab. Addendum: 01/26/20 at 0937 by Adore Mcfarland RN Caregiver phone number provided by patient: Yvette [phone]
[2020-01-26 13:00] VITALS: BP 134/73
[2020-01-26 16:26] VITALS: BP 125/72
[2020-01-26 18:15] VITALS: BP 129/75
--- NOTE | 2020-01-26 18:55 | NUR ---
Spoke to Kyleigh Crenshaw, Urology Ok to DC patient home with nephrostomy tubes and kaba catheter in place. Patient needs to follow up with Dr. Tineo in 1-2 weeks.
[2020-01-26] MEDS ORDERED: ATORVASTATIN 20 MG TAB PO SCH (22:00)
[2020-01-26] MEDS: GABAPENTIN 300 MG CAP PO SCH (22:26)
[2020-01-26] MEDS: cefTRIAXone 1GM/50ML D5W 50 ML IV SCH (22:27)
[2020-01-26 22:45] VITALS: BP 137/76
[2020-01-27 05:10] VITALS: BP 124/61
[2020-01-27] MEDS: HEPARIN SODIUM (PORCINE) 5000 UNITS/ML 1ML VIAL SC SCH ×2 (06:28→14:00)
[2020-01-27 06:45] LABS: Basophils # (auto) 0 10 ^3/uL (0-0.2); Basophils % (auto) 0.7 % (0.0-2.0); Eosinophils # (auto) 0.2 10 ^3/uL (0-0.8); Eosinophils % (auto) 3.7 % (0.0-7.0); Hematocrit 25.7 % (36.0-46.0); Hemoglobin 8.5 g/dL (12.2-16.2); Lymphocytes # (auto) 1.3 10 ^3/uL (0.4-5.4); Lymphocytes % (auto) 20.7 % (10.0-50.0); Mean Corpuscular Hemoglobin 29.1 pg (28.0-32.0); Mean Corpuscular Hgb Conc. 33.1 g/dL (32.0-36.0); Monocytes # (auto) 0.4 10 ^3/uL (0-1.3); Monocytes % (auto) 5.8 % (0.0-12.0); Neutrophils # (auto) 4.4 10 ^3/uL (1.6-8.6); Neutrophils % (auto) 69.1 % (37.0-80.0); Platelet Count (auto) 239 10^3/uL (140-450); Red Blood Cells 2.92 10^6/uL (4.0-5.20); Red Cell Distribution Width 15.5 % (11.8-14.3); White Blood Cell 6.4 10^3/uL (4.4-10.8)
[2020-01-27] MEDS: InsuLIN REG 1unit/0.01ml Soln (100units/ml) SC SCH ×3 (07:00→17:00)
[2020-01-27] MEDS: ACCU-CHEK COMFORT CURVE STRIP VI SCH ×2 (07:00→11:30)
[2020-01-27 07:04] LABS: Albumin 2.2 g/dL (3.4-5.0); BUN/Creatinine Ratio 14.9; Magnesium 1.8 mg/dL (1.6-2.6); Potassium 3.9 mmol/L (3.5-5.1)
[2020-01-27 07:07] LABS: Bilirubin, Total 0.2 mg/dL (0.2-1.0); Total Protein 6.4 g/dL (6.4-8.2)
[2020-01-27 08:26] VITALS: BP 146/72
[2020-01-27 12:05] VITALS: BP 125/70
[2020-01-27] MEDS: ASPirin-EC 81 mg tab PO SCH (12:31)
[2020-01-27] MEDS: OXYBUTYNIN CHL 5 MG TAB PO SCH (12:31)
[2020-01-27] MEDS: CITALOPRAM HYDROBR 20 MG TAB PO SCH (12:31)
[2020-01-27] MEDS: PANTOPRAZOLE 40 MG TAB PO SCH (12:32)
--- NOTE | 2020-01-27 15:32 | NUR ---
Per provider orders pt will be going home with HH for safety and kaba/nephrostomy care. Contacted [employer], contracted vendor for [facility], and faxed clinical information. Faxed clinical information to [facility] for authorization and per Mellissa auth is [id number]. Pt accepted onto service and will be seen by HH agency 24 hours after discharge. Per pt her caregiver , Yvette, will be providing transportation home. No further SS concerns or needs.
[2020-01-27 15:59] VITALS: BP 125/70
[2020-01-27 16:47] VITALS: BP 133/66
--- NOTE | 2020-01-27 19:09 | NUR ---
DISCHARGE NOTE PATIENT ALERT AND ORIENTED X4 ALL DISCHARGE INFORMATION GIVEN ALL QUESTIONS AND CONCERNS ADDRESSED AND ANSWERED PATIENT VERBALIZED UNDERSTANDING. IV REMOVED CATHETER INTACT PRESSURE DRESSING APPLIED PATIENT TOLERATED WELL TELE BOX REMOVED CLEANED AND SENT TO ICU GAG WRITER NOTIFIED. LOEPZ LEG BAG GIVEN PATIENT EDUCATED USE. PATIENT EDUCATED ON HOW TO DRAIN NEPHROSTOMY TUBES. LAST OUTPUT VIA NEPHROSTOMY TUBE RIGHT SIDE 300ML LEFT SIDE 250ML. PATIENT ASSISTED TO TAXI VOUCHER VAN PATIENT DENIES ALL PAIN SOB AND DISTRESS
== END 2020-01-27 19:06 | disposition home health service (06) | DRG 64 ==
LOC: EDBD 18:15 → ER 18:26 → TELE 18:27 → TELE-EAST 01-20 02:04 → TELE-CENTR 01-20 17:23
PROVIDERS: ADMIT Hospitalist; ATTEND Hospitalist
PROC: 0T9B70Z Drainage of Bladder with Drainage Device, Via Natural or Artificial Opening (ICD-10-PCS; principal; 2020-01-19)
PROC: 0T9330Z Drainage of Right Kidney Pelvis with Drainage Device, Percutaneous Approach (ICD-10-PCS; 2020-01-22)
PROC: 0T9430Z Drainage of Left Kidney Pelvis with Drainage Device, Percutaneous Approach (ICD-10-PCS; 2020-01-22)
PROC: 0BBF3ZX Excision of Right Lower Lung Lobe, Percutaneous Approach, Diagnostic (ICD-10-PCS; 2020-01-24)
DX: I63.9 Cerebral infarction, unspecified (principal); N17.0 Acute kidney failure with tubular necrosis; G81.91 Hemiplegia, unspecified affecting right dominant side; E87.2 Acidosis; C78.00 Secondary malignant neoplasm of unspecified lung; G40.209 Localization-related (focal) (partial) symptomatic epilepsy and epileptic syndromes with complex partial seizures, not intractable, without status epilepticus; I42.9 Cardiomyopathy, unspecified; N13.6 Pyonephrosis; N18.4 Chronic kidney disease, stage 4 (severe); R55 Syncope and collapse; N18.9 Chronic kidney disease, unspecified; E11.8 Type 2 diabetes mellitus with unspecified complications; D64.9 Anemia, unspecified; I10 Essential (primary) hypertension; C67.9 Malignant neoplasm of bladder, unspecified; D63.8 Anemia in other chronic diseases classified elsewhere; E04.1 Nontoxic single thyroid nodule; E11.22 Type 2 diabetes mellitus with diabetic chronic kidney disease; E11.40 Type 2 diabetes mellitus with diabetic neuropathy, unspecified; E11.65 Type 2 diabetes mellitus with hyperglycemia; E55.9 Vitamin D deficiency, unspecified; E78.5 Hyperlipidemia, unspecified; E88.09 Other disorders of plasma-protein metabolism, not elsewhere classified; F15.10 Other stimulant abuse, uncomplicated; F17.200 Nicotine dependence, unspecified, uncomplicated; H53.462 Homonymous bilateral field defects, left side; I12.9 Hypertensive chronic kidney disease with stage 1 through stage 4 chronic kidney disease, or unspecified chronic kidney disease; I65.21 Occlusion and stenosis of right carotid artery; I70.8 Atherosclerosis of other arteries; J44.9 Chronic obstructive pulmonary disease, unspecified; M19.90 Unspecified osteoarthritis, unspecified site; M51.36 Other intervertebral disc degeneration, lumbar region; F32.9 Major depressive disorder, single episode, unspecified; G89.29 Other chronic pain; K21.9 Gastro-esophageal reflux disease without esophagitis; M81.0 Age-related osteoporosis without current pathological fracture; Z20.828 Contact with and (suspected) exposure to other viral communicable diseases; Z79.4 Long term (current) use of insulin; Z79.82 Long term (current) use of aspirin; Z79.899 Other long term (current) drug therapy; Z82.62 Family history of osteoporosis; Z83.3 Family history of diabetes mellitus; Z85.51 Personal history of malignant neoplasm of bladder; Z86.73 Personal history of transient ischemic attack (TIA), and cerebral infarction without residual deficits; Z95.0 Presence of cardiac pacemaker; Z88.5 Allergy status to narcotic agent; Z88.8 Allergy status to other drugs, medicaments and biological substances; Z79.01 Long term (current) use of anticoagulants
CPT/HCPCS: 10022; 36415; 51702; 70450; 70551; 71045; 71250; 74176; 74425; 76775; 76942; 77012; 78306; 80053; 80061; 80307; 81001; 82306; 82570; 82962; 83036; 83735; 83970; 84100; 84156; 84300; 84443; 84484; 85025; 85610; 85730; 87086; 87426; 93005; 93306; 93886; 95819; 96365; 97110; 97116; 97530; 99152; C1729; G0378; J0696; J1815; J2250; J2405

== ENCOUNTER 2020-03-05 16:40 | Inpatient (IN) | payer OTHER, MEDICAID ==
[~2020-03-05] VITALS: Ht 165.1 cm; Wt 45.4 kg
[~2020-03-05 16:40] MED LIST changes: -ASPI325T4 PO; -LISI-648 PO; -SIMV10TA84 PO; -[UNRECOGNIZED DRUG - CODE] PO
[2020-03-05] MEDS ORDERED: SUCCINYLCHOLINE CHLORIDE 20 MG/ML 10ML VIAL IV ONE ×2 (17:12→18:45)
[2020-03-05] MEDS ORDERED: ETOMIDATE (2MG/ML) 20ML VIAL IV ONE ×2 (17:12→18:45)
[2020-03-05] MEDS ORDERED: MIDAZOLAM DRIP 50 mg/50mL 50 ML IV ONE (17:24)
[2020-03-05] MEDS ORDERED: AZITHROMYCIN 500MG/ 250ML 250 ML IV ONE (17:30)
[2020-03-05] MEDS: MIDAZOLAM DRIP 50 mg/50mL 50 ML IV SCH ×2 (17:30→20:15)
[2020-03-05 18:00] VITALS: BP 94/49
[2020-03-05 19:45] LABS: Basophils # (auto) 0 10 ^3/uL (0-0.2); Basophils % (auto) 0.1 % (0.0-2.0); Eosinophils # (auto) 0 10 ^3/uL (0-0.8); Hemoglobin 11.8 g/dL (12.2-16.2); Lymphocytes # (auto) 0.3 10 ^3/uL (0.4-5.4); Lymphocytes % (auto) 2.3 % (10.0-50.0); Mean Corpuscular Hemoglobin 28.3 pg (28.0-32.0); Mean Corpuscular Hgb Conc. 31.9 g/dL (32.0-36.0); Mean Corpuscular Volume 88.7 fL (80.0-100.0); Monocytes # (auto) 0.4 10 ^3/uL (0-1.3); Monocytes % (auto) 3.2 % (0.0-12.0); Neutrophils # (auto) 10.6 10 ^3/uL (1.6-8.6); Neutrophils % (auto) 94.4 % (37.0-80.0); Nucleated Red Blood Cells % 0.3 %; Platelet Count (auto) 169 10^3/uL (140-450); Red Blood Cells 4.17 10^6/uL (4.0-5.20); Red Cell Distribution Width 16.5 % (11.8-14.3); White Blood Cell 11.2 10^3/uL (4.4-10.8)
[2020-03-05] MEDS ORDERED: SODIUM BICARBONATE 8.4 % INJ 50ML VIAL IV ONE ×3 (20:00→23:59)
[2020-03-05 20:01] LABS: Albumin 2.2 g/dL (3.4-5.0); Anion Gap 16 (5-15); Calcium 8.6 mg/dL (8.5-10.1); Chloride 122 mmol/L (98-107); Glucose 219 mg/dL (74-106); Magnesium 3.8 mg/dL (1.6-2.6); Sodium 146 mmol/L (136-145)
[2020-03-05 20:03] LABS: Lactic Acid w/Reflex 3.9 mmol/L (0.4-2.0)
[2020-03-05 20:10] LABS: Alanine Aminotransferase 25 U/L (13-56); Alkaline Phosphatase 110 U/L (45-117); Aspartate Aminotransferase 68 U/L (15-37); BUN/Creatinine Ratio 15.6; Bilirubin, Total 0.4 mg/dL (0.2-1.0); GFR African American 5 mL/min; GFR Non-African American 4 mL/min; Total Protein 7.5 g/dL (6.4-8.2)
[2020-03-05 20:26] LABS: Blood Alcohol < 3.0 mg/dL (0-5); CRP High Sensitivity 14.6 mg/dL (< 0.3)
[2020-03-05 20:32] LABS: Blood Urea Nitrogen 165 mg/dL (7-18); Carbon Dioxide 8 mmol/L (21-32); Potassium 6.8 mmol/L (3.5-5.1)
[2020-03-05 20:35] LABS: INR 1.07 (0.9-1.15)
[2020-03-05] MEDS ORDERED: CALCIUM GLUC 4.65meq/50ml D5AE 50 ML IV ONE (20:45)
[2020-03-05] MEDS ORDERED: SODIUM BICARBONATE 50ML VIAL 150 ML in D5W 5% 1,000 ML IV ONE (21:30)
[2020-03-05 22:00] VITALS: BP 98/49
[2020-03-05] MEDS ORDERED: NOREPINEPHRINE 8 MG/250ML KIT 250 ML IV ONE (22:37)
[2020-03-05] MEDS ORDERED: ACETAMINOPHEN 650 MG RECT SUPP PR PRN (22:45)
[2020-03-05] MEDS ORDERED: MORPHINE SULF INJ 2 MG/ML SYRINGE 1ML IV PRN (22:45)
[2020-03-05] MEDS: SOD CHL 0.45% 1,000 ML IV SCH (22:45)
[2020-03-05] MEDS ORDERED: ONDANSETRON HCL 4 MG/2 ML VIAL IV PRN (22:45)
[2020-03-05] MEDS ORDERED: NITROGLYCERIN 0.4 MG SL TAB SL PRN (22:45)
[2020-03-05] MEDS ORDERED: DEXTROSE (50%) 50ML SYRG IV PRN (22:45)
[2020-03-05] MEDS ORDERED: NOREPINEPHRINE 8 MG/250ML KIT 250 ML IV SCH (23:00)
[2020-03-06 02:00] VITALS: BP 61/27
[2020-03-06] MEDS: SOD CHL 0.45% 1,000 ML IV SCH (03:09)
[2020-03-06] MEDS ORDERED: DOPamine 1600MCG/ML D5W 250 ML IV ONE (03:18)
[2020-03-06] MEDS ORDERED: DOPamine 1600MCG/ML D5W 250 ML IV SCH (03:30)
[2020-03-06] MEDS: MIDAZOLAM DRIP 50 mg/50mL 50 ML IV SCH (03:57)
[2020-03-06] MEDS ORDERED: SODIUM BICARBONATE 8.4% INJ 50ML SYRINGE ONE (04:16)
[2020-03-06 04:54] VITALS: BP 46/29
[2020-03-06] MEDS ORDERED: InsuLIN REG 1unit/0.01ml Soln (100units/ml) SC SCH ×2 (07:00→22:00)
[2020-03-06] MEDS ORDERED: ACCU-CHEK COMFORT CURVE STRIP VI SCH (07:00)
[2020-03-06] MEDS ORDERED: DexAMETHasone SOD PHOS 10MG/1ML VIAL INJ IV SCH (10:00)
[2020-03-06] MEDS ORDERED: HEPARIN SODIUM (PORCINE) 5000 UNITS/ML 1ML VIAL SC SCH (10:00)
[2020-03-06] MEDS ORDERED: DOXYCYCLINE 100MG/250ML 250 ML IV SCH (10:00)
[2020-03-06] MEDS ORDERED: FAMOTIDINE (10MG/ML) 2ML VL IV SCH (10:00)
[2020-03-06] MEDS ORDERED: EPINEPHrine HCL 1 MG/10 ML SYRG IV ONE (11:50)
[2020-03-06] MEDS ORDERED: SODIUM BICARBONATE 8.4% INJ 50ML SYRINGE IV ONE (11:50)
== END 2020-03-06 04:45 | DRG 208 ==
LOC: ER 16:40 → EDUNIT# 16:40 → EDBD 16:40 → TELE 16:41
PROVIDERS: ADMIT Nurse Practitioner Family; ATTEND Nurse Practitioner Family
PROC: 5A1935Z Respiratory Ventilation, Less than 24 Consecutive Hours (ICD-10-PCS; principal; 2020-03-06)
PROC: 0BH17EZ Insertion of Endotracheal Airway into Trachea, Via Natural or Artificial Opening (ICD-10-PCS; 2020-03-06)
PROC: 5A12012 Performance of Cardiac Output, Single, Manual (ICD-10-PCS; 2020-03-06)
DX: U07.1 COVID-19 (principal); G93.41 Metabolic encephalopathy; J96.01 Acute respiratory failure with hypoxia; I21.4 Non-ST elevation (NSTEMI) myocardial infarction; E87.2 Acidosis; C78.00 Secondary malignant neoplasm of unspecified lung; N13.30 Unspecified hydronephrosis; N17.9 Acute kidney failure, unspecified; D72.829 Elevated white blood cell count, unspecified; E11.65 Type 2 diabetes mellitus with hyperglycemia; C67.9 Malignant neoplasm of bladder, unspecified; E78.5 Hyperlipidemia, unspecified; E87.5 Hyperkalemia; I10 Essential (primary) hypertension; M81.0 Age-related osteoporosis without current pathological fracture; R32 Unspecified urinary incontinence; Z66 Do not resuscitate; Z80.9 Family history of malignant neoplasm, unspecified; Z83.3 Family history of diabetes mellitus; Z85.51 Personal history of malignant neoplasm of bladder; Z86.73 Personal history of transient ischemic attack (TIA), and cerebral infarction without residual deficits; Z82.62 Family history of osteoporosis; Z95.0 Presence of cardiac pacemaker; Z93.6 Other artificial openings of urinary tract status; I46.9 Cardiac arrest, cause unspecified
CPT/HCPCS: 31500; 36415; 36600; 51702; 71045; 80053; 80320; 82728; 82805; 82962; 83036; 83605; 83735; 84484; 85025; 85379; 85610; 85730; 86141; 87040; 87070; 87205; 87426; 92950; 94002; 96365; 99291; G0378; J0330; J0610; J2250